=== PATIENT | female | born 1965 | race Hispanic/Latino ===

== ENCOUNTER → 2018-05-03 | Day surgery (SDC) | payer BC ==
--- NOTE | 2018-05-02 16:20 | Diagnostic Imaging Report ---
EXAMINATION: CHEST 2 VIEWS INDICATION: Pre-op COMPARISON: None FINDINGS: TUBES and LINES: None. LUNGS: Lungs are well inflated. Lungs are clear. There is no evidence of pneumonia or pulmonary edema. PLEURA: No pleural effusion or pneumothorax. HEART AND MEDIASTINUM: The cardiomediastinal silhouette is unremarkable. BONES AND SOFT TISSUES: No acute osseous lesion. Soft tissues are unremarkable. UPPER ABDOMEN: No free air under the diaphragm. IMPRESSION: No acute radiographic abnormality. Signed by: Dr. Kobe Galvez MD on 05/02/2018 4:17 PM
[2018-05-02 16:29] LABS: BASOPHILS # (AUTO) 0.1 (0.0-0.1); BASOPHILS % 0.8 % (0.0-1.0); EOSINOPHILS # (AUTO) 0.2 (0.0-0.4); EOSINOPHILS % 1.8 % (0.0-6.0); HEMATOCRIT 43.7 % (34.2-44.1); HEMOGLOBIN 14.1 g/dL (12.0-16.0); LYMPHOCYTES # (AUTO) 3.4 (1.0-3.2); LYMPHOCYTES % 39.6 % (18.0-39.1); MEAN CORPUSCULAR HEMOGLOBIN 28.5 pg (28-32); MEAN CORPUSCULAR HGB CONC 32.3 g/dL (31-35); MEAN CORPUSCULAR VOLUME 88.5 fL (81-99); MONOCYTES # (AUTO) 0.6 (0.2-0.8); MONOCYTES % 6.6 % (4.4-11.3); NEUTROPHILS # (AUTO) 4.4 (2.1-6.9); PLATELET COUNT 291 x10e3/uL (140-360); RED BLOOD COUNT 4.94 x10e6/uL (3.6-5.1)
[~2018-05-03] MED LIST: BUPIVACAINE HCL 0.5% INJ 30 ML VIAL INJ ONE; CEFAZOLIN SOD 1 GM VIAL ONE; DEXAMETHASONE SOD PHOS INJ 4 MG/ML VIAL ONE; DIPHENHYDRAMINE HCL INJ 50 MG/ML VIAL ONE; FENTANYL CITRATE/PF 100MCG/2 ML INJ ONE; HYDROMORPHONE 2MG/ML 2 MG/ML ML ONE; ISOFLURANE INHAL SOLN 250 ML BTL INH ONE; KETOROLAC TROMETHAMINE 30 MG/ML VIAL ONE; LIDOCAINE HCL 2% LOCAL INJ 5 ML SDV VIAL INJ ONE; MIDAZOLAM HCL 2 MG/2 ML VIAL ONE; MORPHINE SULFATE 2 MG/ML SYR ONE; NEOSTIGMINE 1 MG/ML 10ML VIAL ONE; ONDANSETRON HCL INJ 2 MG/ML VIAL ONE; PROPOFOL IV EMULSION 10 MG/ML 20 ML VIAL ONE; [UNRECOGNIZED DRUG - OTHER] PO
[2018-05-03 09:25] VITALS: BP 123/76
--- OUTSIDE RECORDS SUMMARY | 2018-05-07 13:15 | XMS REPORT ---
Author Author [facility] Address Unknown Phone Unavailable Care Team Providers Care Grinding Room Inspector Name Role Phone Kennedy POLO Unavailable Unavailable Problems This patient has no known problems. Allergies, Adverse Reactions, Alerts This patient has no known allergies or adverse reactions. Medications This patient has no known medications. Results Test Description Test Time Test Comments Text Results Atomic Results Result Comments CHEST 2 VIEWS 2018-05-02 16:15:00 [facility] [address] [place] [address] Patient Name: LEXI NIETO MR #: [id number] : 1965 Age/Sex: 52/F Req #: [id number] Adm Physician: Ordered by: SLY POLO DPM Report #: [id number] Location: OR Room/Bed: Procedure: [id number] DX/CHEST 2 VIEWS Exam Date: 05/02/18 Exam Time: 1318 REPORT STATUS: Signed EXAMINATION: CHEST 2 VIEWS INDICATION: Pre-op COMPARISON: None FINDINGS: TUBES and LINES: None. LUNGS: Lungs are well inflated. Lungs are clear. There is no evidence of pneumonia or pulmonary edema. PLEURA: No pleural effusion or pneumothorax. HEART AND MEDIASTINUM: The cardiomediastinal silhouette is unremarkable. BONES AND SOFT TISSUES: No acute osseous lesion. Soft tissues are unremarkable. UPPER ABDOMEN: No free air under the diaphragm. IMPRESSION: No acute radiographic abnormality. Signed by: Dr. Zee Ortez MD on 05/02/2018 4:17 PM Dictated By: ZEE ORTEZ MD 161 Transcribed By: SID on 05/02/181616 COPY TO: SLY POLO DPM
--- NOTE | 2018-05-08 08:12 | Operative Report ---
DATE OF PROCEDURE: May 03, 2018 PREOPERATIVE DIAGNOSIS: Left hallux valgus. POSTOPERATIVE DIAGNOSIS: Left hallux valgus. PLANNED PROCEDURE: Left Lapidus bunionectomy. GLUE PLANT OPERATOR: Dr. Jim DPM ANESTHESIA: General with a postoperative block consisting of 10 mL of 0.5% Marcaine plain. HEMOSTASIS: Pneumatic thigh tourniquet set at 350 mmHg for a total time of approximately 1 hour. ESTIMATED BLOOD LOSS: Less than 10 mL. PATHOLOGY: None. MATERIALS: 2-0 Vicryl, 3-0 Vicryl, 4-0 Prolene. One Larky 4.0 cannulated screw. One Larky medial locking plate. PROCEDURE IN DETAIL: The patient was seen in the preoperative waiting room where the correct procedure and site were identified. The patient was brought to the operating room and placed on the operating table in the supine position. General anesthesia was initiated at this time. A well-padded pneumatic tourniquet was placed about the patient's left thigh. The left foot and ankle were then scrubbed, prepped and draped in the usual aseptic manner. The left foot, ankle and leg were exsanguinated with an Esmarch bandage, and the pneumatic thigh tourniquet was inflated to 350 mmHg for a total time of approximately 1 hour. Attention was directed to the dorsomedial aspect of the patient's left foot where an 8-cm curvilinear incision was made over the 1st metatarsophalangeal joint extending to the 1st metatarsocuneiform joint. The incision was carried through subcutaneous tissue, it from deeper underlying structures. All vital neurovascular structures were identified and retracted medially and laterally, and all bleeders were cauterized or ligated as deemed necessary. At this time, attention was directed to the 1st metatarsocuneiform joint where a linear capsulotomy was performed. Utilizing a [place] elevator and a #15 blade, the 1st metatarsocuneiform was easily identified. Utilizing an osteotome and mallet, the plantar ligaments were cut to allow for full rotation of the 1st metatarsal. Next, utilizing a sagittal saw, the distal articular cartilage was resected from the 1st cuneiform with the apex medial and the wedge lateral. The articular cartilage at the base of the 1st metatarsal was also resected with the saw, curette and rongeur. Next, attention was directed the 1st metatarsophalangeal joint where an inverted-L capsulotomy was performed as well as a full lateral release consisting of deep transverse metatarsal ligament, lateral collateral ligament as well as the fibular sesamoid ligament. Next, the base of the 1st metatarsal as well as the distal articular surface of the 1st cuneiform was fenestrated with subchondral drilling. The 1st metatarsal was reduced by rotating and decreasing the IM angle and temporarily fixated with a guidewire and confirmed via intraoperative fluoroscopy to be in the correct placement location. Next, utilizing sewer repairer's protocol, one 4.0 cannulated x 36 mm compression screw was placed across the osteotomy site, and fixation site was stable. Next, per sewer repairer's protocol, one 4-hole medial locking plate was placed on the osteotomy site with a combination of locking and nonlocking screws measuring between 18 and 22 mm. Fixation site was stable. The wound was then flushed with copious amounts of sterile saline. Capsular and deep tissue were reapproximated with 2-0 Vicryl, subcutaneous tissue with 3-0 Vicryl, and the skin was closed using a running interlocking stitch with 4-0 Prolene. The wound was dressed with Adaptic, 4 x 4's, Kerlix, Webril, posterior splint, 4-inch Christian wrap and 6-inch Christian wrap. Patient tolerated the procedure and anesthesia well. The patient was transferred to the postoperative recovery unit with vital signs stable and vascular status intact. The patient was monitored there for a short period time before being sent home with the following written and oral instructions: 1. Keep the dressing clean, dry and intact. 2. The patient is to remain 100% nonweightbearing to the left lower extremity and to avoid any ambulation until being seen in the office. 3. The patient was given the office number and instructed to contact us if any problems should arise. Job#: [id number]
== END | disposition home or self-care (01) ==
LOC: OR 05:11
PROVIDERS: ATTEND Podiatrist Foot & Ankle Surgery
DX: M20.12 Hallux valgus (acquired), left foot (principal); F17.210 Nicotine dependence, cigarettes, uncomplicated; Z01.810 Encounter for preprocedural cardiovascular examination; Z01.812 Encounter for preprocedural laboratory examination; Z01.818 Encounter for other preprocedural examination
CPT/HCPCS: 28297; 36415; 71046; 81025; 85025; 93005; C1713 ×3; J0690; J1100; J1170; J1200; J1885; J2001; J2250; J2270; J2405; J2710